=== PATIENT | female | born 1960 | race Caucasian/White ===

== ENCOUNTER → 2020-01-10 11:00 | Outpatient (BNVA) | payer MEDICARE, SELFPAY | PROVIDERS: Family Provider Family Medicine; PCP Family Medicine; Visit Provider Family Medicine | DX: M54.5 Low back pain (principal); I10 Essential (primary) hypertension; E78.2 Mixed hyperlipidemia; I48.91 Unspecified atrial fibrillation | CPT/HCPCS: 80053; 80061; 85610 ==

== ENCOUNTER → 2020-05-02 10:44 | Outpatient (BNVA) | payer MEDICARE, SELFPAY | PROVIDERS: Family Provider Family Medicine; PCP Family Medicine; Visit Provider Internal Medicine Cardiovascular Disease | DX: I48.91 Unspecified atrial fibrillation (principal); I07.1 Rheumatic tricuspid insufficiency; I34.0 Nonrheumatic mitral (valve) insufficiency; I50.42 Chronic combined systolic (congestive) and diastolic (congestive) heart failure; I48.11 Longstanding persistent atrial fibrillation; I36.1 Nonrheumatic tricuspid (valve) insufficiency; E78.2 Mixed hyperlipidemia; Z95.0 Presence of cardiac pacemaker | CPT/HCPCS: 80162 ==

== ENCOUNTER → 2020-06-09 11:53 | Outpatient (BNVA) | payer MEDICARE, SELFPAY | PROVIDERS: Family Provider Family Medicine; PCP Family Medicine; Visit Provider Family Medicine | DX: I48.91 Unspecified atrial fibrillation (principal); Z95.0 Presence of cardiac pacemaker | CPT/HCPCS: 85610 ==

== ENCOUNTER → 2020-08-04 10:05 | Outpatient (BNVA) | payer MEDICARE, SELFPAY | PROVIDERS: Family Provider Family Medicine; PCP Family Medicine; Visit Provider Family Medicine | DX: I48.91 Unspecified atrial fibrillation (principal); I50.32 Chronic diastolic (congestive) heart failure | CPT/HCPCS: 80048; 85610 ==

== ENCOUNTER → 2020-08-11 09:17 | Outpatient (BNVA) | payer MEDICARE, SELFPAY | PROVIDERS: Family Provider Family Medicine; PCP Family Medicine; Visit Provider Family Medicine | DX: I48.0 Paroxysmal atrial fibrillation (principal); M17.10 Unilateral primary osteoarthritis, unspecified knee | CPT/HCPCS: 85610 ==

== ENCOUNTER → 2020-09-01 10:41 | Outpatient (BNVA) | payer MEDICARE, SELFPAY | PROVIDERS: Family Provider Family Medicine; PCP Family Medicine; Visit Provider Family Medicine | DX: I48.0 Paroxysmal atrial fibrillation (principal) | CPT/HCPCS: 85610 ==

== ENCOUNTER → 2020-09-16 11:09 | Outpatient (BNVA) | payer MEDICARE, SELFPAY | PROVIDERS: Family Provider Family Medicine; PCP Family Medicine; Visit Provider Family Medicine | DX: I07.1 Rheumatic tricuspid insufficiency (principal); I34.0 Nonrheumatic mitral (valve) insufficiency; I48.0 Paroxysmal atrial fibrillation | CPT/HCPCS: 85610 ==

== ENCOUNTER → 2020-09-30 09:40 | Outpatient (BNVA) | payer MEDICARE, SELFPAY | PROVIDERS: Family Provider Family Medicine; PCP Family Medicine; Referring Provider Family Medicine; Visit Provider Family Medicine | DX: I48.0 Paroxysmal atrial fibrillation (principal) | CPT/HCPCS: 85610 ==

== ENCOUNTER → 2020-10-21 13:44 | Outpatient (BNVA) | payer MEDICARE, SELFPAY | PROVIDERS: Family Provider Family Medicine; PCP Family Medicine; Visit Provider Family Medicine | DX: I48.0 Paroxysmal atrial fibrillation (principal) | CPT/HCPCS: 85610 ==

== ENCOUNTER → 2020-11-19 08:39 | Outpatient (BNVA) | payer MEDICARE, SELFPAY | PROVIDERS: Family Provider Family Medicine; PCP Family Medicine; Referring Provider Family Medicine; Visit Provider Family Medicine | DX: I48.0 Paroxysmal atrial fibrillation (principal) | CPT/HCPCS: 85610 ==

== ENCOUNTER → 2020-12-03 10:13 | Outpatient (BNVA) | payer MEDICARE, SELFPAY | PROVIDERS: Family Provider Family Medicine; PCP Family Medicine; Visit Provider Family Medicine | DX: I10 Essential (primary) hypertension (principal); E78.2 Mixed hyperlipidemia; I50.32 Chronic diastolic (congestive) heart failure; I48.0 Paroxysmal atrial fibrillation; J44.9 Chronic obstructive pulmonary disease, unspecified; M17.10 Unilateral primary osteoarthritis, unspecified knee; M54.42 Lumbago with sciatica, left side; M54.41 Lumbago with sciatica, right side; G89.29 Other chronic pain | CPT/HCPCS: 80053; 80061; 85025; 85610 ==

== ENCOUNTER → 2020-12-09 09:21 | Outpatient (BNVA) | payer MEDICARE, SELFPAY | PROVIDERS: Family Provider Family Medicine; PCP Family Medicine; Referring Provider Family Medicine; Visit Provider Family Medicine | DX: I48.0 Paroxysmal atrial fibrillation (principal) | CPT/HCPCS: 85610 ==

== ENCOUNTER → 2020-12-10 10:01 | Outpatient (BNVA) | payer MEDICARE, SELFPAY | PROVIDERS: Family Provider Family Medicine; PCP Family Medicine; Referring Provider Family Medicine; Visit Provider Orthopaedic Surgery | DX: M17.0 Bilateral primary osteoarthritis of knee (principal) | CPT/HCPCS: 73560; 73565 ==

== ENCOUNTER → 2020-12-22 10:33 | Day surgery (SDC) | payer MEDICARE, SELFPAY | PROVIDERS: PCP Family Medicine; Visit Provider Orthopaedic Surgery | DX: Z01.818 Encounter for other preprocedural examination (principal) | CPT/HCPCS: 93005 ==

== ENCOUNTER → 2020-12-23 08:28 | Outpatient (BNVA) | payer MEDICARE, SELFPAY | PROVIDERS: PCP Family Medicine; Visit Provider Orthopaedic Surgery | DX: M17.11 Unilateral primary osteoarthritis, right knee (principal); Z20.822 Contact with and (suspected) exposure to COVID-19 | CPT/HCPCS: 87635 ==

== ENCOUNTER 2020-12-29 13:02 | Observation (INO) | payer MEDICARE, SELFPAY ==
--- NOTE | 2020-12-19 13:32 | ECG_ITS ---
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 Measurements Intervals [place] Rate: 73 P: NC: QRS: -64 QRSD: 190 T: 77 QT: 448 QTc: 494 Interpretive Statements ELECTRONIC VENTRICULAR PACEMAKER ABNORMAL RHYTHM ECG No previous ECG available for comparison Electronically Signed On 12-20-2020 5:23:59 CDT by Jennifer Posey M.D. [id number]
[2020-12-19 13:44] VITALS: BMI 27.4
[2020-12-19 14:30] LABS: Basophils # 0.1 10^3/uL (0.0-0.1); Basophils % 1.2 %; Eosinophils # 0.2 10^3/uL (0.0-0.8); Hematocrit 36.6 % (37.0-47.0); Lymphocytes # 1.4 10^3/uL (0.8-4.8); Lymphocytes % 23.4 %; Mean Corpuscular HGB Conc 30.1 g/dL (30.0-36.0); Mean Corpuscular Hemoglobin 30.3 pg (28.0-34.0); Mean Corpuscular Volume 100.8 fL (81-99); Mean Platelet Volume 10.9 fL (7.4-10.4); Monocytes # 0.5 10^3/uL (0.2-0.9); Monocytes % 8.8 %; Neutrophils # 3.59 10^3/uL (1.8-7.7); Neutrophils % 62.3 %; Nucleated Red Blood Cells % 0 %; Platelet Count 179 10^3/cmm (130-400); Red Blood Count 3.63 10^6/uL (4.1-5.3); Red Cell Distribution Width 13.4 % (12.1-15.1); White Blood Count 5.8 10^3/uL (4.0-10.0)
[2020-12-19 14:38] LABS: INR 1.95 (0.8-1.2)
[2020-12-19 15:01] LABS: Partial Thromboplastin Time 35.5 SECONDS (23.9-36.7)
--- NOTE | 2020-12-19 17:13 | P.ANESASSM_ITS ---
Pre-Anesthetic Assessment Pre-Anesthetic Assessment: Height/Weight: Height 1.63 m Weight 72.575 kg Proposed Procedure: Operation Date: 12/29/20 10:40 Proposed Procedures p right total knee arthroplasty 74160 m17.11(Right) - Kilo Marti MD Was Beta Donte taken within 24 hours: Yes Was Clonidine taken within 24 hours: N/A Social: Social History: No alcohol and No tobacco Exam: Pre-Anes Outpt Exam: alert, oriented x 3, clear to auscultation bilaterally and regular rate & rhythm Airway: Submandibular: WNL Cervical ROM: WNL MP: 2 Dentition: False CV/HEM: CV/HEM: Afib, CHF, HTN and Murmur Comments: Coumadin, pacemaker Anesthetic Plan: ASA status: 3 Anesthesia: Regional (specify below) (SAB/adductor) Risk of > 500 ml blood loss (7ml/kg in children): No PFSH Anesthesia PFSH: Medical History (Updated 12/10/20 @ 10:46 by Kilo Marti MD) Atrial fibrillation CHF (congestive heart failure) HTN (hypertension) Hyperlipidemia Lower back pain Pacemaker Tricuspid valve regurgitation Surgical History History of tricuspid valve annuloplasty Family History Other CHF (congestive heart failure) Social History Smoking and tobacco status: never smoked Alcohol intake: never Female Reproductive History: Spontaneous abortions: No Data Anesthesia CBC & Chem 7: 12/19/20 14:07 Other Labs: Laboratory Results - last 48 hr 12/19/20 12/19/20 14:07 14:07 WBC 5.8 RBC 3.63 L Hgb 11.0 L Hct 36.6 L MCV 100.8 H MCH 30.3 MCHC 30.1 RDW 13.4 Plt Count 179 MPV 10.9 H Neut % (Auto) 62.3 Lymph % (Auto) 23.4 [place] % (Auto) 8.8 Eos % (Auto) 4.0 Baso % (Auto) 1.2 Neut # (Auto) 3.59 Lymph # (Auto) 1.4 [place] # (Auto) 0.5 Eos # (Auto) 0.2 Baso # (Auto) 0.1 Nucleated RBC % (auto) 0 Nucleated RBCs # 0.0 PT 22.70 H INR 1.95 H APTT 35.5 Cardiac Studies: No Data to Display
[2020-12-29] VITALS (17 sets, daily range): BP systolic 94–143; BP diastolic 49–79; PULSE 69–74; RESP 12–22; TEMP 36.1–36.7; O2SAT 92–99
[2020-12-29] MEDS: CELEcoxib 200 mg Capsule 400 MG PO (08:18)
[2020-12-29] MEDS: oxyCODONE 20 mg ER (12 HR) Tablet PO (08:18)
[2020-12-29] MEDS: acetaminophen 500 mg Tablet 1000 MG PO ×3 (08:18→23:43)
[2020-12-29] MEDS: gabapentin 300 mg Capsule PO ×2 (08:18→17:03)
[2020-12-29] MEDS: sodium chloride 0.9% 1,000 ML 30 ML IV (08:20)
--- NOTE | 2020-12-29 08:46 | P.ANESUD_ITS ---
Pre-Anesthetic Update Pre-Anesthetic Assessment: Date of Surgery/Procedure: 12/29/20 Preop Ana gnosis: Osteoarthritis left knee Proposed Procedure: Operation Date: 12/29/20 10:00 Proposed Procedures p right total knee arthroplasty 33046 m17.11(Right) - Kilo Marti MD Any changes to Pre-Anesthetic Assessment?: No Last Intake: Intake Last Liquid Date 12/28/20 Last Liquid Time 22:00 Last Solid Date 12/28/20 Last Solid Time 20:00 Vitals: Temperature 98.1 F 12/29/20 08:01 Temperature Source Temporal Artery S can 12/29/20 08:01 Pulse Rate 74 12/29/20 08:01 Respiratory Rate 18 12/29/20 08:01 Blood Pressure 136/79 12/29/20 08:01 Blood Pressure Magdalena n 98 12/29/20 08:01 Pulse Oximetry 96 12/29/20 08:01 Oxygen Delivery Me thod 12/29/20 08:05 Exam: Pre-Anes Outpt Exam: alert, oriented x 3 and clear to auscultation bilaterally Cardiac Studies: No Data to Display
--- NOTE | 2020-12-29 10:49 | ANES.PROC ---
Anesthesia Procedures Procedure/Date: 12/29/20 Nerve Block ^: Nerve Block 1: Main Anesthesia: spinal anesthesia block Time Out Performed: Yes Consent: requested by attending/covering physician, from patient, risks and benefits reviewed and patient agrees to proceed Nerve block location: adductor canal (right) Anesthesia monitors applied: pulse oximetry, EKG, BP cuff and oxygen Nerve block position: supine Anesthetic Used: ropivicaine 0.5% Amount of anesthesia used (mL): 20 Ultrasound used to: recognize landmarks and visualize and ID brachial plexus Nerve Stimulator Used?: No Interscalene/Femoral BLK: 4 stimuplex 21 g needle used for position and inplane approach Injection: neg aspiration of heme Patient Tolerated Procedure: well Complications: none
--- NOTE | 2020-12-29 10:50 | P.HP_ITS ---
Same Day Surgery H&P Indication for Procedure/HPI DATE OF PROCEDURE: December 29, 2020 CHIEF COMPLAINT/INDICATIONFOR SURGICAL PROCEDURE: Osteoarthritis right knee here for total knee Terence PREOP DIAGNOSIS: Osteoarthritis left knee PLANNED PROCEDRUE: Operation Date: 12/29/20 10:00 Proposed Procedures p right total knee arthroplasty 87958 m17.11(Right) - Kilo Marti MD Medications/Allergies* Home Medications Medication Instructions Recorded Confirmed Type calcium-ergocalciferol (vit D2) 1 tab PO DAILY 11/08/19 12/29/20 History tablet dvenxhipdjvwk-SU-ygxdjrdvtpdcz-guaif 5 ml PO PRN 11/15/19 12/29/20 History 5 mg-10 mg-325 mg-200mg/15 mL liq digoxin 125 mcg (0.125 mg) tablet 125 mcg PO DAILY tab 10/31/20 12/29/20 History spironolactone 50 mg tablet 25 mg PO BID tab 10/31/20 12/29/20 History torsemide 20 mg tablet 10 mg PO DAILY PRN tab 10/31/20 12/29/20 History Allergies/Adverse Reactions Allergy/AdvReac Type Severity Reaction Status Date / Time No Known Allergies Allergy Verified 12/10/20 09:50 Current Medications: Generic Name Dose Route Start Last Admin Trade Name Freq PRN Reason Stop Dose Admin Sodium Chloride 1,000 mls @ 30 mls/hr 12/29/20 08:00 12/29/20 08:20 Sodium Chloride 0.9% IV 12/30/20 07:59 30 mls/hr .Q24H JESENIA Administration Pertinent History/Comorbid Conditions* Medical History (Updated 12/10/20 @ 10:46 by Kilo Marti MD) Atrial fibrillation CHF (congestive heart failure) HTN (hypertension) Hyperlipidemia Lower back pain Pacemaker Tricuspid valve regurgitation Surgical History (Updated 11/08/19 @ 10:10 by Jennifer Posey MD) History of tricuspid valve annuloplasty Family History (Updated 11/08/19 @ 10:05 by Helene Horton RN) CHF (congestive heart failure) Social History Smoking and tobacco status: never smoked Alcohol intake: never Pertinent Exam Findings alert, oriented x 3, clear to auscultation bilaterally, regular rate & rhythm and operative site marked Recommendations Surgery/Procedure today Coding Level of Care Code Acute 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
[2020-12-29] MEDS: EPINEPHrine 1 mg/mL INJ XX (11:55)
[2020-12-29] MEDS: tranexamic acid 1,000 mg/10mL SDV 1000 MG IRRIGATION (11:55)
[2020-12-29] MEDS: ketorolac 30 mg/mL INJ XX (11:56)
--- NOTE | 2020-12-29 12:12 | XRR_ITS ---
PROCEDURE INFORMATION: Exam: XR Right Knee Exam date and time: 12/29/2020 12:14 PM Age: 60 years old Clinical indication: Device placement; Joint replacement hardware; Prior surgery; Surgery date: Post-operative (0-2 days); Additional info: Right total knee arthroplasty TECHNIQUE: Imaging protocol: XR Right knee. Views: 1 or 2 views. COMPARISON: CR XR knees AP WB w RT lmt ORTH 12/10/2020 10:07 AM FINDINGS: Bones/joints: The patient is status post right total knee arthroplasty with patellar resurfacing. No evidence hardware related complication. No fracture or dislocation identified. Expected postoperative soft tissue changes seen. Vascular atherosclerotic calcifications noted. Soft tissues: See Bones/joints finding. XR/XR knee RT 1-2V 37000 IMPRESSION: Status post right total knee arthroplasty, without evidence of hardware related complication.
--- NOTE | 2020-12-29 12:17 | P.OP_ITS ---
Operative Report Date of procedure: December 29, 2020 Pre-op Diagnosis: Osteoarthritis right knee Post-op diagnosis: same Post-op Findings: Same Procedure Done: Right total knee arthroplasty Implants: [place] total knee arthroplasty components were used includin) Size 3 triathalon posterior stabilized femoral component 2) Size 3 Tritanium tibial component 3) 32 mm /9 mm thickness Tritanium asymetric patella 4) Size 3/11 mm thickness PS tibial bearing insert Pathology: none sent Surgeon: Kilo Marti Anesthesia: Nerve Block (Spinal, adductor canal block) Estimated blood loss (mL): 200 Findings: The patient had tricompartmental degenerative changes. He had poor quality osteopenic bone that did not allow for press-fit components on the tibia and patella Condition: stable Disposition: PACU Procedure: The patient was taken to the operating room. Patient was given 1 g of tranexamic acid . The above anesthesia provided by the anesthesia service. A timeout was performed. The patient was prepped and draped in the usual fashion with the lower extremity exposed. A anterior incision was made, mi dline, from a point proximal to the patella to the distal tibial tubercle. The knee was entered through a medial parapatellar approach. The patella could be displaced laterally and the knee flexed. The patellar fat pad was resected to provide better visibility. Retractors were placed medially and laterally adjacent to the tibial plateau. The femoral canal was drilled in line with the longitudinal axis of the femur. Intramedullary femoral guide for used to make a distal femoral cut in 5 degrees of valgus, resecting 8 mm from the more prominent condyle. Next the extra medullary tibial guide was placed in alignment with the longitudinal axis of the tibia. The cutting guides were set to remove just over 9 mm from the high tibial plateau. The proximal tibia was then cut. The femoral measuring guide was then placed over the distal femur. Rotation was verified checking the relationship of the guide to the condyle and the trochlear groove. The femur was measured and cut for the desired femoral component. The desired tibial baseplate was then chosen. A trial reduction with the femur tibial baseplate and polyethylene was done, assuring that the knee was stable throughout full mo tion. Ligament balancing no specific releases.The tibia was prepared for the tibial baseplate. Patellar thickness was then measured. The patella was cut removing articular cartilage and prepared for appropriate size patellar button. All surfaces were cleaned with pulsatile lavage. The femur tibia and patella were then press-fit into place. However fixation of the tibia and patellar compartment seemed marginal. The components were then removed and reapplied with cement. The posterior capsule and collateral ligaments were then injected with a solution of 100 mL of 0.2% ropivacaine, 1 mL of a 1:1000 epinephrine solution, and 30 mg of Toradol. Final polyethylene component was then snapped into place into the tibia. 2 grams of tranexamic acid were applied to the wound. The tourniquet was deflated. The tranxanemic acid was left contact with the knee for 5 minutes before the knee was irrigated with saline. The extensor retinaculum was closed with a running 1 Stratafix.. The subc utaneous tissues were closed with 2-0 Vicryl and the skin was closed with a running 3-0 Stratafix. The wound was covered with a Dermabond Prinio dressing. It was covered with 4xrs and a compressive Tubigauae was applied. The patient was taken to recovery room in stable condition.
--- NOTE | 2020-12-29 12:28 | SUR.PHASEI ---
1228 PT HAS NO SENSATION/MOVEMENT TO BILATERAL LOWER EXTREMITIES, CAP REFILL <3 SEC, PEDAL PULSE PALPATED
--- NOTE | 2020-12-29 13:03 | PC.NURSE ---
patient arrived on unit.
[2020-12-29] MEDS: oxyCODONE 5 mg IR Tab/Cap PO ×2 (13:23→21:15)
[2020-12-29] MEDS: sodium chloride 0.9% 1,000 ML 100 ML IV ×2 (13:23→23:43)
--- NOTE | 2020-12-29 14:52 | ANE.PACU2 ---
Inpatient post-anesthesia follow up: Airway intact: Yes Vital signs: Temperature 97.5 F Pulse Rate 70 Respiratory Rate 16 Blood Pressure 120/49 Pulse Oximetry 96 Oxygen Delivery Me thod Room Air Oxygen Flow Rate Fraction of Inspir ed Oxygen Hydration adequate: Yes Nausea and vomiting: No Pain level: 2 Mental status: Baseline
--- NOTE | 2020-12-29 16:09 | PM.PN ---
Subjective Subjective: Interval history: Pain under good control. Resting Vitals/I&O/Wt Last Vital Signs Temp 97.7 F 12/29/20 15:07 Pulse 69 12/29/20 15:07 Resp 12 12/29/20 15:07 BP 126/75 12/29/20 15:07 Pulse Ox 95 12/29/20 15:07 12/29/20 12/29/20 12/29/20 06:59 14:59 22:59 Intake Total 160 / 160 1000 / 1160 Output Total 400 / 400 Balance -240 / -240 1000 / 760 Physical Exam Narrative: EXAM NARRATIVE: Incision clean and dry. Minimal swelling knee and calf Urinary Catheter Management^: Mac: Cath Placed During This Visit: yes Urinary Catheter Date of Insertion: 12/29/20 Urinary Catheter Time of Insertion: 11:10 Data : 12/19/20 14:07 A&P Assessment and plan (1) Osteoarthritis of right knee: Status: Resolved (2) Status post right knee replacement: Continue to mobilize with therapy. Anticipate discharge tomorrow. Resume Coumadin tonight. Status: Acute Attestations Medical Necessity Statement*: Patient will be discharged home independent with walker and home exercise program. 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
[2020-12-29] MEDS: sennosides-docusate Tablet 2 TAB PO (17:04)
[2020-12-29] MEDS: spironolactone 25 mg Tablet PO (17:04)
[2020-12-29] MEDS: CELEcoxib 200 mg Capsule PO (19:56)
[2020-12-29] MEDS: metoprolol tartrate 25 mg Tablet 12.5 MG PO (19:56)
[2020-12-29 19:59] LABS: INR 1.45 (0.8-1.2)
[2020-12-30] VITALS (7 sets, daily range): BP systolic 106–147; BP diastolic 68–78; PULSE 69–93; RESP 16–22; TEMP 36.7–36.8; O2SAT 95–97
[2020-12-30] MEDS: oxyCODONE 5 mg IR Tab/Cap PO (03:38)
[2020-12-30 06:14] LABS: Hemoglobin 8.8 g/dL (11.5-15.3)
[2020-12-30 06:29] LABS: INR 1.38 (0.8-1.2)
--- NOTE | 2020-12-30 06:39 | PC.NURSE ---
SHIFT SUMMARY Has had a good night. Is very motivated to get moving. Has been exercising right leg in bed. Dressing & ice pack to right knee. Has MIYA hose in place as well as foot pumps. IV fluids infusing at 100ml/hr. Receiving scheduled doses of antibiotics. Medicated with OXYIR X2 and was started on scheduled po Tylenol. Has used IS during night. Good urine output per Mac. Mac will be dc'd this am. Restarted pts po Coumadin last evening.
--- NOTE | 2020-12-30 07:43 | PM.DCS ---
Discharge Providers Date of Admission: 12/29/20 13:02 Date of Discharge: December 30, 2020 Attending Provider at Admission: Kilo Marti MD Attending Provider at Discharge: Kilo Marti MD Primary Care Provider: Meryl Morocho MD Diagnoses at Discharge Discharge Diagnosis (1) Osteoarthritis of right knee: Status: Resolved (2) Status post right knee replacement: Status: Acute Reason for Visit Reason for Visit: right total knee arthroplasty 37482 Hospital Course Hospital Course The patient was admitted for elective right total knee arthroplasty. Postoperatively she did well. Her pain was controlled with oral medications. She progressed well with therapy and by the first day was independent with her walker. He had a history of atrial fibrillation and was begun on her Coumadin the evening of surgery. She remained hemodynamically stable. She was discharged home on the first postoperative day. Physical Exam Narrative: EXAM NARRATIVE: On the day of discharge his knee incision was clean. They had no drainage. There is minimal swelling in the thigh and knee and the calf. No distal neurovascular deficits were noted Urinary Catheter Management^: Mac: Cath Placed During This Visit: yes, but has since been removed by the nurse Reason for Continuing Indwelling Catheter: Decision to DC Catheter Urinary Catheter Date of Insertion: 12/29/20 Urinary Catheter Time of Insertion: 11:10 Date Urinary Catheter Removed: 12/30/20 Time Urinary Catheter Discontinued: 07:19 Discharge Data Data Completed and Pending: Completed Studies During Hospitalization Category Date Time Status XR knee RT 1-2V 7 3560 Routine Exams 12/29/20 12:12 Completed Labs from last 24 hours 12/30/20 12/30/20 12/29/20 05:20 05:20 19:38 Hgb 8.8 L PT 17.40 H 18.00 H INR 1.38 H 1.45 H Vitals: Last Vital Signs Temp 98.1 F 12/30/20 07:33 Pulse 76 12/30/20 07:33 Resp 16 12/30/20 07:33 BP 129/74 12/30/20 07:33 Pulse Ox 95 12/30/20 07:33 Discharge Plan Discharge Patient Disposition: Home Condition: Stable Prescriptions: New oxycodone 5 mg Tablet 5 mg PO Q4H PRN (Reason: Moderate Pain) 7 Days Qty: 40 RF: 0 acetaminophen 500 mg Tablet 1,000 mg PO Q8H 14 Days Qty: 84 RF: 0 celecoxib 200 mg Capsule 200 mg PO Q12H 14 Days Qty: 28 RF: 0 gabapentin 300 mg Capsule 300 mg PO BID 7 Days Qty: 14 RF: 0 Continued Tylenol Cold and Flu Severe 5-77-885-200 mg/15 mL liquid 5 ml PO PRN RF: 0 digoxin 125 mcg (0.125 mg) tablet 125 mcg PO DAILY RF: 0 spironolactone 50 mg tablet 25 mg PO BID RF: 0 torsemide 20 mg tablet 10 mg PO DAILY PRN (Reason: Edema) RF: 0 calcium-vitamin D2 Tablet 1 tab PO DAILY RF: 0 metoprolol tartrate 25 mg tablet 12.5 mg PO BID 90 Days Qty: 90 RF: 1 pravastatin 40 mg tablet 40 mg PO DAILY 90 Days Qty: 90 RF: 1 potassium chloride 10 mEq capsule, extended release 20 meq PO DAILY 90 Days Qty: 180 RF: 1 warfarin 7.5 mg tablet 7.5 mg PO DAILY Qty: 30 RF: 0 Other Ambulatory Orders: DME: [facility] (Order) Location: None Selected Ordered By: Kilo Marti Referrals: Kilo Marti MD [Physician] - 01/13/21 2:15 pm Discharge Diet: Advance as tolerated Discharge Activity: Limit activity as instructed Patient Instructions: Opioid Safety Activity Restrictions/Additional Instructions: Okay to shower Keep Tubigauze sleeve in place for swelling. Okay to remove for hygiene. Apply FirstIce up to 20 min/hr for pain and swelling Take Celebrex twice a day for the next 15 days for pain , discontinue other anti-inflammatories Take Neurontin twice a day for 7 days. Take Tylenol 500mg (1-2 tabs) as needed 3 times a day for mild pain take oxycodone for breakthrough pain. Exercises per physical therapy. May weight-bear as tolerated on total knee arthroplasty Discharge Attestations Time Spent in Discharge Care*: other Quality Metrics Clinical Quality Measures During this hospital stay, did patient experience: None Coding Level of Care Code Acute [facility] note Diagnoses Osteoarthritis of right knee M17.11 Status post right knee replacement Z96.651
[2020-12-30] MEDS: CELEcoxib 200 mg Capsule PO (07:54)
[2020-12-30] MEDS: spironolactone 25 mg Tablet PO (07:55)
[2020-12-30] MEDS: metoprolol tartrate 25 mg Tablet 12.5 MG PO (07:55)
[2020-12-30] MEDS: atorvastatin 40 mg Tablet 20 MG PO (07:55)
[2020-12-30] MEDS: sennosides-docusate Tablet 2 TAB PO (07:55)
[2020-12-30] MEDS: digoxin 125 mcg Tablet PO (07:55)
[2020-12-30] MEDS: HYDROcodone-acetaminophen 5-325 mg Tablet 1 TAB PO ×2 (07:56→13:43)
[2020-12-30] MEDS: potassium chloride ER 20 mEq Tablet PO (07:56)
[2020-12-30] MEDS: gabapentin 300 mg Capsule PO (07:56)
[2020-12-30] MEDS: ondansetron 2 mg/ML SDV 2 mL 4 MG IVP (07:58)
== END 2020-12-30 15:03 | disposition home or self-care (01) ==
LOC: MEDSURG 16:33
PROVIDERS: Anesthesiology; Admitting Provider Orthopaedic Surgery; PCP Family Medicine; Visit Provider Orthopaedic Surgery
PROC: (CPT 27447; principal; 2020-12-29 09:40)
DX: M17.11 Unilateral primary osteoarthritis, right knee (principal); I48.91 Unspecified atrial fibrillation; I11.0 Hypertensive heart disease with heart failure; I50.9 Heart failure, unspecified; E78.5 Hyperlipidemia, unspecified; Z95.0 Presence of cardiac pacemaker; Z82.49 Family history of ischemic heart disease and other diseases of the circulatory system
CPT/HCPCS: 27447; 36415; 64447; 73560; 76942; 85018; 85025; 85610; 85730; 96365; 97110; 97116; 97161; 97165; 97530; 97535; C1776; G0378; J0171; J0690; J1580; J1885; J2250; J2370; J2405; J2704; J2795; J7030

== ENCOUNTER → 2021-01-08 10:50 | Outpatient (BNVA) | payer MEDICARE, SELFPAY | PROVIDERS: PCP Family Medicine; Visit Provider Internal Medicine Cardiovascular Disease | DX: I48.91 Unspecified atrial fibrillation (principal); I07.1 Rheumatic tricuspid insufficiency; I34.0 Nonrheumatic mitral (valve) insufficiency; I50.42 Chronic combined systolic (congestive) and diastolic (congestive) heart failure; I48.11 Longstanding persistent atrial fibrillation; I36.1 Nonrheumatic tricuspid (valve) insufficiency; E78.2 Mixed hyperlipidemia; Z95.0 Presence of cardiac pacemaker; I10 Essential (primary) hypertension; I48.0 Paroxysmal atrial fibrillation | CPT/HCPCS: 85610 ==

== ENCOUNTER → 2021-01-10 10:41 | Outpatient (BNVA) | payer MEDICARE, SELFPAY | PROVIDERS: PCP Family Medicine; Referring Provider Family Medicine; Visit Provider Family Medicine | DX: I48.0 Paroxysmal atrial fibrillation (principal) | CPT/HCPCS: 85610 ==

== ENCOUNTER → 2021-01-12 10:17 | Outpatient (BNVA) | payer MEDICARE, SELFPAY | PROVIDERS: PCP Family Medicine; Visit Provider Family Medicine | DX: I48.0 Paroxysmal atrial fibrillation (principal); Z96.651 Presence of right artificial knee joint; Z79.01 Long term (current) use of anticoagulants; R79.1 Abnormal coagulation profile | CPT/HCPCS: 85610 ==

== ENCOUNTER → 2021-01-15 10:16 | Outpatient (BNVA) | payer MEDICARE, SELFPAY | PROVIDERS: PCP Family Medicine; Referring Provider Family Medicine; Visit Provider Family Medicine | DX: I48.0 Paroxysmal atrial fibrillation (principal) | CPT/HCPCS: 85610 ==

== ENCOUNTER → 2021-01-22 11:15 | Outpatient (BNVA) | payer MEDICARE, SELFPAY | PROVIDERS: PCP Family Medicine; Referring Provider Family Medicine; Visit Provider Family Medicine | DX: I48.0 Paroxysmal atrial fibrillation (principal) | CPT/HCPCS: 85610 ==

== ENCOUNTER → 2021-01-29 10:16 | Outpatient (BNVA) | payer MEDICARE, SELFPAY | PROVIDERS: PCP Family Medicine; Referring Provider Family Medicine; Visit Provider Family Medicine | DX: Z79.01 Long term (current) use of anticoagulants (principal); I48.0 Paroxysmal atrial fibrillation | CPT/HCPCS: 85610 ==

== ENCOUNTER → 2021-02-05 10:25 | Outpatient (BNVA) | payer MEDICARE, SELFPAY | PROVIDERS: PCP Family Medicine; Referring Provider Family Medicine; Visit Provider Family Medicine | DX: I48.0 Paroxysmal atrial fibrillation (principal) | CPT/HCPCS: 85610 ==

== ENCOUNTER → 2021-02-10 11:21 | Outpatient (BNVA) | payer MEDICARE, SELFPAY | PROVIDERS: PCP Family Medicine; Visit Provider Orthopaedic Surgery | DX: Z48.89 Encounter for other specified surgical aftercare (principal); Z96.651 Presence of right artificial knee joint | CPT/HCPCS: 73560; 73565 ==

== ENCOUNTER → 2021-02-12 08:52 | Outpatient (BNVA) | payer MEDICARE, SELFPAY | PROVIDERS: PCP Family Medicine; Visit Provider Family Medicine | DX: I48.0 Paroxysmal atrial fibrillation (principal); Z79.01 Long term (current) use of anticoagulants | CPT/HCPCS: 85610 ==

== ENCOUNTER → 2021-02-19 11:23 | Outpatient (BNVA) | payer MEDICARE, SELFPAY | PROVIDERS: PCP Family Medicine; Visit Provider Family Medicine | DX: Z79.01 Long term (current) use of anticoagulants (principal); I48.0 Paroxysmal atrial fibrillation; Z95.0 Presence of cardiac pacemaker | CPT/HCPCS: 85610 ==

== ENCOUNTER → 2021-02-26 11:33 | Outpatient (BNVA) | payer MEDICARE, SELFPAY | PROVIDERS: PCP Family Medicine; Referring Provider Family Medicine; Visit Provider Family Medicine | DX: I48.0 Paroxysmal atrial fibrillation (principal) | CPT/HCPCS: 85610 ==

== ENCOUNTER → 2021-03-12 14:02 | Outpatient (BNVA) | payer MEDICARE, SELFPAY | PROVIDERS: PCP Family Medicine; Visit Provider Family Medicine | DX: Z79.01 Long term (current) use of anticoagulants (principal) | CPT/HCPCS: 85610 ==

== ENCOUNTER → 2021-04-15 12:42 | Outpatient (BNVA) | payer MEDICARE, SELFPAY | PROVIDERS: PCP Family Medicine; Visit Provider Family Medicine | DX: Z79.01 Long term (current) use of anticoagulants (principal) | CPT/HCPCS: 85610 ==

== ENCOUNTER → 2021-04-27 11:10 | Outpatient (BNVA) | payer MEDICARE, SELFPAY | PROVIDERS: PCP Family Medicine; Visit Provider Family Medicine | DX: I48.0 Paroxysmal atrial fibrillation (principal); Z79.01 Long term (current) use of anticoagulants | CPT/HCPCS: 85610 ==

== ENCOUNTER → 2021-06-15 11:59 | Outpatient (BNVA) | payer MEDICARE, SELFPAY | PROVIDERS: PCP Family Medicine; Visit Provider Family Medicine | DX: I48.0 Paroxysmal atrial fibrillation (principal) | CPT/HCPCS: 85610 ==

== ENCOUNTER → 2021-07-01 10:46 | Outpatient (BNVA) | payer MEDICARE, SELFPAY | PROVIDERS: PCP Family Medicine; Visit Provider Family Medicine | DX: I48.0 Paroxysmal atrial fibrillation (principal); E78.2 Mixed hyperlipidemia; I10 Essential (primary) hypertension; D64.9 Anemia, unspecified; Z79.01 Long term (current) use of anticoagulants | CPT/HCPCS: 80053; 80061; 85025; 85610 ==

== ENCOUNTER → 2021-08-06 09:56 | Outpatient (BNVA) | payer MEDICARE, SELFPAY | PROVIDERS: PCP Family Medicine; Visit Provider Internal Medicine Cardiovascular Disease | DX: Z79.01 Long term (current) use of anticoagulants (principal); E78.2 Mixed hyperlipidemia; I48.0 Paroxysmal atrial fibrillation; I50.9 Heart failure, unspecified; I07.1 Rheumatic tricuspid insufficiency; Z95.0 Presence of cardiac pacemaker | CPT/HCPCS: 85610 ==

== ENCOUNTER → 2021-09-01 10:24 | Outpatient (BNVA) | payer MEDICARE, SELFPAY | PROVIDERS: PCP Family Medicine; Visit Provider Family Medicine | DX: Z79.01 Long term (current) use of anticoagulants (principal) | CPT/HCPCS: 85610 ==

== ENCOUNTER → 2021-10-19 10:44 | Outpatient (BNVA) | payer MEDICARE, SELFPAY | PROVIDERS: PCP Family Medicine; Referring Provider Family Medicine; Visit Provider Family Medicine | DX: I48.91 Unspecified atrial fibrillation (principal) | CPT/HCPCS: 85610 ==

== ENCOUNTER → 2022-01-22 11:17 | Outpatient (BNVA) | payer MEDICARE, SELFPAY | PROVIDERS: PCP Family Medicine; Visit Provider Internal Medicine Cardiovascular Disease | DX: I48.91 Unspecified atrial fibrillation (principal); I11.0 Hypertensive heart disease with heart failure; I50.9 Heart failure, unspecified; I07.1 Rheumatic tricuspid insufficiency; E78.2 Mixed hyperlipidemia; Z95.0 Presence of cardiac pacemaker | CPT/HCPCS: 99214 ==

== ENCOUNTER → 2022-02-22 10:02 | Outpatient (BNVA) | payer MEDICARE, SELFPAY | PROVIDERS: PCP Family Medicine; Visit Provider Family Medicine | DX: I10 Essential (primary) hypertension (principal); I48.91 Unspecified atrial fibrillation; E78.2 Mixed hyperlipidemia; I50.32 Chronic diastolic (congestive) heart failure; K58.9 Irritable bowel syndrome, unspecified; Z79.01 Long term (current) use of anticoagulants; H53.9 Unspecified visual disturbance; V89.2XXD Person injured in unspecified motor-vehicle accident, traffic, subsequent encounter | CPT/HCPCS: 85610 ==

== ENCOUNTER → 2022-02-25 12:05 | Outpatient (BNVA) | payer MEDICARE, SELFPAY | PROVIDERS: PCP Family Medicine; Visit Provider Family Medicine | DX: Z79.01 Long term (current) use of anticoagulants (principal); H53.9 Unspecified visual disturbance | CPT/HCPCS: 85610 ==

== ENCOUNTER → 2022-03-12 11:47 | Outpatient (BNVA) | payer MEDICARE, SELFPAY | PROVIDERS: PCP Family Medicine; Visit Provider Family Medicine | DX: Z79.01 Long term (current) use of anticoagulants (principal) | CPT/HCPCS: 85610 ==

== ENCOUNTER → 2022-04-06 09:43 | Outpatient (BNVA) | payer MEDICARE, SELFPAY | PROVIDERS: PCP Family Medicine; Visit Provider Family Medicine | DX: I48.91 Unspecified atrial fibrillation (principal) | CPT/HCPCS: 85610 ==

== ENCOUNTER 2022-05-27 07:18 | Outpatient (CLI) | payer MEDICARE, SELFPAY ==
--- NOTE | 2022-05-27 07:30 | CT_ITS ---
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 TECHNIQUE: Contiguous axial imaging performed through the brain in 3.0 mm imaging. Bone and soft tiss ue windows. Sagittal and coronal reformats reviewed. All CT scans at [facility] use at least one of these dose optimization techniques: automated exposure control; mA and/or kV adjustment per pa tient size (includes targeted exams where dose is matched to clinical indication); or iterative recon struction. DLP: 904.78 mGy.cm COMPARISON: 04/20/2019 No acute intracranial hemorrhage, midline shift or mass effect. No atrophy or prior infarcts or herniation. No change in the tiny lacunar infarct in the anterior li mb of the LEFT internal capsule. Basal ganglia calcifications are stable. Ventricles: Normal size with no hydrocephalus. Paranasal sinuses: As visualized are clear. Mastoid air cells: Well pneumatized. Calvarium and scalp: Skull is intact with no soft tissue edema or swelling. CT/CT head wo con* 84790 IMPRESSION: 1. No acute intracranial hemorrhage, edema or mass effect. 2. Stable noncontrast head CT since 04/20/2019.
== END 2022-05-27 07:19 | disposition home or self-care (01) ==
PROVIDERS: PCP Family Medicine; Visit Provider Family Medicine
DX: H53.9 Unspecified visual disturbance (principal); Z79.01 Long term (current) use of anticoagulants
CPT/HCPCS: 70450

== ENCOUNTER → 2022-06-01 13:09 | Outpatient (BNVA) | payer MEDICARE, SELFPAY | PROVIDERS: PCP Family Medicine; Visit Provider Family Medicine | DX: Z00.00 Encounter for general adult medical examination without abnormal findings (principal); Z23 Encounter for immunization; Z12.31 Encounter for screening mammogram for malignant neoplasm of breast; Z12.11 Encounter for screening for malignant neoplasm of colon; Z71.89 Other specified counseling; Z79.01 Long term (current) use of anticoagulants | CPT/HCPCS: 85610 ==

== ENCOUNTER → 2022-06-23 17:39 | Outpatient (BNVA) | payer MEDICARE, SELFPAY | PROVIDERS: PCP Family Medicine; Visit Provider Family Medicine | DX: Z79.01 Long term (current) use of anticoagulants (principal) | CPT/HCPCS: 85610 ==

== ENCOUNTER 2022-07-02 10:05 | Outpatient (CLI) | payer MEDICARE, SELFPAY ==
--- NOTE | 2022-07-02 10:13 | MM_ITS ---
WS: [id number] Bilateral screening 3D tomosynthesis digital mammogram, 07/02/2022 Clinical Data: Z12.39 - Encounter for other screening for malignant neop... Comparison: 06/01/2019, 07/16/2015. Findings: The breast parenchymal pattern shows fibroglandular tissue. No spiculated masses or clustered calcifi cations are seen. There are no secondary signs of carcinoma. There are benign vascular calcifications in both breasts. There is a mole marker on the right breast. MM/[place] [id number] Impression: 1. Negative bilateral mammogram unchanged. 2. Recommend annual screening mammograms. BIRADS: 1-Negative FOLLOW UP: 1 Year Follow-up The CAD unloading checker was used.
== END 2022-07-02 10:06 | disposition home or self-care (01) ==
PROVIDERS: PCP Family Medicine; Visit Provider Family Medicine
DX: Z12.31 Encounter for screening mammogram for malignant neoplasm of breast (principal); Z95.0 Presence of cardiac pacemaker
CPT/HCPCS: 77063; 77067; 93279

== ENCOUNTER → 2022-07-21 14:10 | Outpatient (BNVA) | payer MEDICARE, SELFPAY | PROVIDERS: PCP Family Medicine; Visit Provider Family Medicine | DX: Z79.01 Long term (current) use of anticoagulants (principal) | CPT/HCPCS: 85610 ==

== ENCOUNTER → 2022-07-29 10:29 | Outpatient (BNVA) | payer MEDICARE, SELFPAY | PROVIDERS: PCP Family Medicine; Visit Provider Internal Medicine Cardiovascular Disease | DX: I48.0 Paroxysmal atrial fibrillation (principal); I11.0 Hypertensive heart disease with heart failure; I50.9 Heart failure, unspecified; I07.1 Rheumatic tricuspid insufficiency; E78.2 Mixed hyperlipidemia; Z95.0 Presence of cardiac pacemaker | CPT/HCPCS: 99214 ==

== ENCOUNTER → 2022-10-12 09:35 | Outpatient (BNVA) | payer MEDICARE, SELFPAY | PROVIDERS: PCP Family Medicine; Visit Provider Family Medicine | DX: Z79.01 Long term (current) use of anticoagulants (principal) | CPT/HCPCS: 85610 ==

== ENCOUNTER → 2022-10-26 08:45 | Outpatient (BNVA) | payer MEDICARE, SELFPAY | PROVIDERS: PCP Family Medicine; Visit Provider Internal Medicine Cardiovascular Disease | DX: Z45.010 Encounter for checking and testing of cardiac pacemaker pulse generator [battery] (principal) | CPT/HCPCS: 93296 ==

== ENCOUNTER → 2022-11-12 11:16 | Outpatient (BNVA) | payer MEDICARE, SELFPAY | PROVIDERS: PCP Family Medicine; Visit Provider Family Medicine | DX: Z79.01 Long term (current) use of anticoagulants (principal) | CPT/HCPCS: 85610 ==

== ENCOUNTER → 2022-12-28 13:42 | Outpatient (BNVA) | payer MEDICARE, SELFPAY | PROVIDERS: PCP Family Medicine; Visit Provider Family Medicine | DX: Z79.01 Long term (current) use of anticoagulants (principal) | CPT/HCPCS: 85610 ==

== ENCOUNTER → 2023-02-28 10:49 | Outpatient (BNVA) | payer MEDICARE, SELFPAY | PROVIDERS: PCP Family Medicine; Visit Provider Family Medicine | DX: Z79.01 Long term (current) use of anticoagulants (principal) | CPT/HCPCS: 85610 ==

== ENCOUNTER → 2023-03-08 12:35 | Outpatient (BNVA) | payer MEDICARE, SELFPAY | PROVIDERS: PCP Family Medicine; Visit Provider Family Medicine | DX: Z79.01 Long term (current) use of anticoagulants (principal) | CPT/HCPCS: 85610 ==

== ENCOUNTER → 2023-03-30 11:06 | Outpatient (BNVA) | payer MEDICARE, SELFPAY | PROVIDERS: PCP Family Medicine; Visit Provider Family Medicine | DX: Z79.01 Long term (current) use of anticoagulants (principal) | CPT/HCPCS: 85610 ==

== ENCOUNTER → 2023-04-07 12:00 | Outpatient (BNVA) | payer MEDICARE, SELFPAY | PROVIDERS: PCP Family Medicine; Visit Provider Internal Medicine Cardiovascular Disease | DX: Z79.01 Long term (current) use of anticoagulants (principal); I50.9 Heart failure, unspecified | CPT/HCPCS: 80162; 85610 ==

== ENCOUNTER → 2023-04-12 12:54 | Outpatient (BNVA) | payer MEDICARE, SELFPAY | PROVIDERS: PCP Family Medicine; Referring Provider Internal Medicine Cardiovascular Disease; Visit Provider Internal Medicine Cardiovascular Disease | DX: I48.0 Paroxysmal atrial fibrillation (principal); I50.32 Chronic diastolic (congestive) heart failure; Z79.01 Long term (current) use of anticoagulants | CPT/HCPCS: 80162; 85610 ==